=== PATIENT | male | born 1950 | race Caucasian/White ===

== ENCOUNTER → 2018-03-19 | Outpatient (CLI) | payer OTHER ==
[~2018-03-19] MED LIST: FLONASE; HYDROCODON-ACE1 EAC5 PO; NEURONTIN600 MG PO; NORCO 5-325 TA1 EACH PO; NORTRIPTYLINE H10 M1 PO; OMEPRAZOLE; OSCIMIN0.125 M1 PO; PAMELOR PO; PREDNISONE 20 M20 MG PO; PRILOSEC40 MG PO
== END ==
LOC: M.RAD 16:10
DX: M19.072 Primary osteoarthritis, left ankle and foot (principal); M77.32 Calcaneal spur, left foot

== ENCOUNTER 2018-10-24 23:31 | Emergency (ER) | payer OTHER ==
[~2018-10-24] VITALS: Ht 175.3 cm; Wt 65.8 kg
--- NOTE | ~2018-10-24 | CON ---
[address] [address] CONSULTATION Name: JEANETTE THOMAS Room: [facility] [place]#: [id number] Admission: 10/24/18 Attend Phys: Discharge: 10/25/18 Date of : 54 Report #: [id number] THIS REPORT FOR: //name// CC: Evelyn Wasserman DATE OF SERVICE: 10/25/2018 HISTORY OF PRESENT ILLNESS: The patient is a pleasant 68-year-old male with a past medical history significant for gastroesophageal reflux disease who is presenting with food bolus impaction. The patient reports that he had some rudolph peppers last night and since then has felt tightness and pain in his chest. The patient reports pain on swallowing and inability to swallow solids or liquids. He denies any difficulty breathing, nausea or vomiting. The patient reports a similar episode several years back. PAST MEDICAL HISTORY: Gastroesophageal reflux disease. PAST SURGICAL HISTORY: Nonsignificant. FAMILY HISTORY: No family history of esophageal, gastric or colon cancer. SOCIAL HISTORY: The patient smokes about half pack of cigarettes per day and denies recreational drug use. He does report intermittent alcohol use. REVIEW OF SYSTEMS: A comprehensive 10-point review of systems is negative except for what was mentioned in the HPI. PHYSICAL EXAMINATION: VITAL SIGNS: Blood pressure 129/72, pulse ox 100%, pulse rate 95, respirations 16, temperature 36.7. Chest x-ray normal. LABORATORY DATA: Indicate hemoglobin 14.5, hematocrit 42.5, platelet count 216, WBC count 99. Sodium 144, potassium 4.1, chloride 106, bicarbonate 25, BUN 12, creatinine 0.9, total bilirubin 1.4, AST 53, ALT 37, alkaline phosphatase 77. INR 1.1. ASSESSMENT AND PLAN: This is a pleasant 68-year-old male with past medical history significant for gastroesophageal reflux disease who is presenting with food bolus impaction. We will proceed with urgent [place] [address] CONSULTATION Name: JEANETTE THOMAS Room: [facility]#: [id number] Admission: 10/24/18 Attend Phys: Discharge: 10/25/18 Date of : 54 Report #: [id number] unable to keep his secretions down. Further recommendations will be based on results of the endoscopy. By: [id number] Varela MD /rigo
[2018-10-24] MEDS ORDERED: NITROGLYCERIN0.4 MG SUBLING (23:43)
[2018-10-25 00:31] LABS: ABSOLUTE BASOPHILS 0.1 thou/uL (0.0-0.2); ABSOLUTE EOSINOPHILS 0.1 thou/uL (0.0-0.7); ABSOLUTE LYMPHOCYTES 1.3 thou/uL (0.8-5.3); ABSOLUTE MONOCYTES 0.6 thou/uL (0.0-1.2); ABSOLUTE NEUTROPHILS 5.9 thou/uL (1.6-8.1); BASOPHILS 0.8 %; HEMATOCRIT 42.5 % (42.0-52.0); HEMOGLOBIN 14.5 gm/dL (14.0-18.0); LYMPHOCYTES 16.5 %; MCH 31.6 pg (26.0-34.0); MCHC 34.2 g/dL (28.0-37.0); MCV 92.5 fL (80.0-100.0); MONOCYTES 7.3 %; MPV 7.6 fl. (7.2-11.1); NUCLEATED RBCS 0 /100WBC; PLATELET COUNT* 216 thou/uL (150-400); POLYS 74.4 %; RDW-CV 13.6 % (10.5-14.5); WBC 7.9 thou/uL (4.0-11.0)
[2018-10-25 00:44] LABS: INR 1.1
[2018-10-25 00:45] LABS: ANION GAP 13 mmol/L (7-16); BUN 12 mg/dL (7-18); CALCIUM 8.8 mg/dL (8.5-10.1); CHLORIDE 106 mmol/L (98-107); CO2 25 mmol/L (21-32); CREATININE 0.9 mg/dL (0.6-1.3); GLUCOSE 107 mg/dL (70-99); POTASSIUM 4.1 mmol/L (3.5-5.1); SODIUM 144 mmol/L (136-145)
[2018-10-25 00:56] LABS: ALBUMIN 4.2 g/dL (3.4-5.0); ALKALINE PHOSPHATASE 77 U/L (46-116); LIPASE 79 U/L (73-393); NT-PRO BRAIN NAT PEPTIDE 71 pg/mL (<300); SGOT 53 U/L (15-37); SGPT 37 U/L (30-65); TOTAL BILIRUBIN 1.4 mg/dL (<0.1-1.0); TOTAL PROTEIN 7.4 g/dL (6.4-8.2); TROPONIN-I LEVEL <0.06 ng/mL (<0.06)
[2018-10-25 02:13] VITALS: BP 129/72
--- NOTE | 2018-10-25 10:15 | EKG ---
[place] [address] ELECTROCARDIOGRAM REPORT Name: JEANETTE THOMAS [id number] Admission: 10/24/18 Attend Phys: Discharge: 10/25/18 Date of : 54 Report #: [id number] THIS REPORT FOR: //name// [facility] ED Test Date: 2018-10-24 Test Time: 23:41:52 Pat Name: JEANETTE THOMAS Department: Room: Gender: M Grocery Checker: : 1950 Requested By: Elgin Wasserman Order Number: [id number] MD: Balwinder Johnson Measurements Intervals [place] Rate: 104 P: 75 CT: 205 QRS: 56 QRSD: 82 T: 63 QT: 337 QTc: 444 Interpretive Statements Sinus tachycardia Nonspecific T abnrm, anterolateral leads Baseline wander in lead(s) V2 Compared to ECG 10/23/2011 11:32:38 Sinus rhythm no longer present Atrial premature complex(es) no longer present Electronically Signed On 10-25-2018 10:15:22 SUPERVISOR EVAPORATOR by Balwinder Johnson [email or web address] <ELECTRONICALLY SIGNED> By: Balwinder Johnson MD, [facility] 10/25/18 [id number] [id number] Balwinder Johnson MD, [facility] /EPI
== END 2018-10-25 02:15 | disposition still patient (30) ==
LOC: M.SUR 23:31 → M.ERS 23:31
PROVIDERS: Emergency Medicine
DX: T18.128A Food in esophagus causing other injury, initial encounter (principal); R11.2 Nausea with vomiting, unspecified; F17.210 Nicotine dependence, cigarettes, uncomplicated; X58.XXXA Exposure to other specified factors, initial encounter; Y93.89 Activity, other specified; Y92.89 Other specified places as the place of occurrence of the external cause; Y99.8 Other external cause status

== ENCOUNTER → 2019-01-29 | Outpatient (CLI) | payer OTHER ==
[~2019-01-29] MED LIST changes: +NITROGLYCERIN0.4 MG SUBLING
[2019-01-29 11:01] LABS: ABSOLUTE EOSINOPHILS 0.1 thou/uL (0.0-0.7); ABSOLUTE LYMPHOCYTES 1.5 thou/uL (0.8-5.3); ABSOLUTE MONOCYTES 0.6 thou/uL (0.0-1.2); BASOPHILS 0.7 %; EOSINOPHILS 2.8 %; HEMATOCRIT 43.7 % (42.0-52.0); HEMOGLOBIN 14.8 gm/dL (14.0-18.0); MCH 30.6 pg (26.0-34.0); MCHC 33.8 g/dL (28.0-37.0); MCV 90.5 fL (80.0-100.0); MONOCYTES 10.6 %; MPV 7.5 fl. (7.2-11.1); NUCLEATED RBCS 0 /100WBC; PLATELET COUNT* 188 thou/uL (150-400); POLYS 56.9 %; RBC 4.83 mil/uL (4.50-6.00); RDW-CV 13.3 % (10.5-14.5); WBC 5.3 thou/uL (4.0-11.0)
[2019-01-29 11:12] LABS: PROTIME 10.3 Seconds (9.20-11.50)
[2019-01-29 11:17] LABS: CREATININE 0.8 mg/dL (0.6-1.3); POTASSIUM 3.8 mmol/L (3.5-5.1); TOTAL BILIRUBIN 1.1 mg/dL (<0.1-1.0); TOTAL PROTEIN 7.1 g/dL (6.4-8.2)
== END ==
LOC: M.ULTRA 10:00
PROVIDERS: Internal Medicine Gastroenterology
DX: K80.20 Calculus of gallbladder without cholecystitis without obstruction (principal)

== ENCOUNTER → 2019-03-22 | Day surgery (SDC) | payer OTHER ==
[~2019-03-22] MED LIST changes: +ASPIR 8181 MG PO; +CRESTOR10 MG PO; +FLONASE 0.05%50 MCG NASAL
[2019-03-22 09:36] LABS: HEMATOCRIT 43.3 % (42.0-52.0); MCH 31.5 pg (26.0-34.0); MCHC 34.6 g/dL (28.0-37.0); MCV 91.1 fL (80.0-100.0); MPV 7.5 fl. (7.2-11.1); RBC 4.76 mil/uL (4.50-6.00); RDW-CV 14.1 % (10.5-14.5); WBC 7.7 thou/uL (4.0-11.0)
[2019-03-22 09:43] LABS: CALCIUM 8.9 mg/dL (8.5-10.1); CREATININE 0.8 mg/dL (0.6-1.3)
[2019-03-22 09:48] LABS: ALBUMIN 3.9 g/dL (3.4-5.0); TOTAL BILIRUBIN 1.8 mg/dL (<0.1-1.0)
--- NOTE | 2019-03-24 15:05 | PATH ---
[facility] [address] [place] [address] PATHOLOGY RPT PROCEDURE Name: JEANETTE THOMAS Room: [facility].#: [id number] Admission: 03/22/19 Date of : 54 Discharge: Report #: [id number] Path Case #: [id number] [facility] Accession Number: [id number] . 01 Material submitted: . gallbladder - GALLBLADDER . 01 Clinical history: . Calculus of gallbladder without cholecystitis or obstruction . 01 Frozen section diagnosis: . . /QMS . 02 Diagnosis: Gallbladder: - Chronic cholecystitis and cholelithiasis. (SHANNAN:frances; 03/24/2019) QMS/03/24/2019 . 02 Electronically signed: . Henrry Negro MD, Pathologist NPI- [id number] . 01 Gross description: . The specimen is received in formalin, labeled "marie Colunga". Received is an intact gallbladder measuring 8.7 x 4.3 x 3.7 cm in greatest dimensions displaying a blue-kennedy serosal surface. Opening the specimen reveals a velvety, bile-stained mucosa with a gallbladder wall thickness of 0.1 cm. Calculi are present displaying a black and stellate appearance, and no masses or lesions are noted grossly. Grease Man sections, to include the proximal margin, are submitted in cassette A1. (CAA; 03/23/2019) QAC/QAC . 02 Microscopic: . . . 02 Pathologist provided ICD-10: K80.10 . 02 CPT . 087519 Specimen Comment: A courtesy copy of this report has been sent to Specimen Comment: [phone], . Specimen Comment: Report sent to and Performed at: [address] [place] [address] PATHOLOGY RPT PROCEDURE Name: JEANETTE THOMAS Room: [facility]#: [id number] Admission: 03/22/19 Date of : 54 Discharge: Report #: [id number] Path Case #: [id number] [address], [place] [id number] MD Lewis Nicholson MD Phone: [phone] Performed at: [address] [place], [place] [id number] MD Henrry Negro MD Phone: [phone]
--- NOTE | 2019-03-27 13:09 | OP ---
[address] [address] OPERATIVE REPORT Name: WILLIAMJEANETTENAE JACQUES Room: [facility]#: [id number] Admission: 03/22/19 Attend Phys: Sigifredo Smith DO Discharge: Date of : 54 Report #: [id number] THIS REPORT FOR: //name// CC: Sigifredo Lawler DATE OF SERVICE: 03/22/2019 REFERRING PHYSICIAN: Dr. Evelyn Jimenez. PREOPERATIVE DIAGNOSIS: Symptomatic cholelithiasis. POSTOPERATIVE DIAGNOSES: Symptomatic cholelithiasis. PROCEDURE: Da Martha robotic-assisted laparoscopic cholecystectomy with immunofluorescence imaging. SURGEON: Sigifredo Smith DO. ANESTHESIA: General endotracheal. ESTIMATED BLOOD LOSS: Less than 20 mL. COMPLICATIONS: None. DESCRIPTION OF PROCEDURE: After obtaining proper consents and discussing risks and complications with the patient, he was taken to the operating room and laid on the supine position, administered general anesthesia. He was then prepped and draped in the usual sterile fashion. Timeout was performed. We confirmed the appropriate patient and procedure. Preoperative antibiotics had been given. SCDs were in place. We then made a small infraumbilical skin incision with #11 scalpel blade. This was carried down through the skin into the subcutaneous tissue using electrocautery for hemostasis. Once the fascia was encountered, it was grasped and elevated with Parris clamps. The peritoneum was then bluntly opened using a hemostat. A 2-0 Vicryl sutures were then placed in a xcaqnb-hi-enikp fashion to secure the da Martha camera port, which was then inserted. Once the camera port was inserted and insufflation was begun. Once insufflation was complete, full visual inspection of the intra-abdominal organs was performed. This revealed no significant gross abnormalities other than a dilated appearing gallbladder and a mildly fatty appearing liver. There did appear to be some omental adhesions to the gallbladder as well. I then placed three more 8.5 mm trocars, one in the left upper quadrant, 2 in the right upper quadrant. We then docked the da Martha robot. We then inserted instruments. A hook cautery was placed in the left upper quadrant, two Cadiere graspers in the right upper quadrant. I then broke scrub and went [place] [address] OPERATIVE REPORT Name: JEANETTE THOMAS Room: [facility].#: [id number] Admission: 03/22/19 Attend Phys: Sigifredo Smith DO Discharge: Date of : 54 Report #: [id number] console, I was able to elevate the fundus of the gallbladder using the third arm and then using arms 1 and 2 I was able to take down the omental adhesions, which were adherent along the entire body of the gallbladder until I was able to visualize Gustavo's pouch. Once Yan's pouch was visualized, I used immunofluorescence imaging to identify the cystic duct and common bile duct and common hepatic duct before any dissection of the hepatoduodenal ligament was performed. Once we were able to visualize this, I was easily able to dissect the hepatoduodenal ligament down from the gallbladder, dissecting the cystic duct free. I then identified the cystic artery, which was also dissected free. I obtained a critical view of safety with the cystic duct, cystic artery, common hepatic duct and common bile duct and this was also confirmed using immunofluorescence imaging. We then placed clips across the cystic duct and cystic artery proximally and distally and both were divided using electrocautery. Once this was complete, I again checked with immunofluorescent imaging to assure there was no cystic duct leak. Finding none, I then proceeded to take the gallbladder down off of the liver bed using electrocautery and blunt dissection. Once the gallbladder was completely removed, I did check the cystic duct and cystic artery stumps again for any leak or bleeding and also the liver bed. We again used immunofluorescence to assure there was no leak from either the liver bed or the cystic duct. Finding none, I then had my facilities assistant grasp the gallbladder through the far right upper quadrant trocar. I then broke scrub and went back to the patient's bedside where we undocked the robot and removed all of the instruments. I was then able to place an Endopouch through the umbilical incision and the gallbladder was placed into the Endopouch. The insufflation was then stopped. All trocars were removed. I removed the gallbladder through the umbilical incision within the Endopouch. I then closed the umbilical fascia using the 2 previously placed 0 Vicryl sutures plus 2 additional 0 Vicryl sutures. Skin incisions were all closed using 4-0 Monocryl subcuticular stitches. Mastisol, Steri-Strips, sterile OpSite and pressure dressings were placed after the wounds were injected with 0.5% Marcaine without epinephrine. The patient was awakened in the operating room and transported to recovery room in stable condition. Sponge, needle and instrument counts were all correct x 3 at the end of the procedure. <ELECTRONICALLY SIGNED> By: Sigifredo Smith DO 03/27/19 1309 [id number] Smith DO /nt
== END | disposition home or self-care (01) ==
LOC: M.SUR 07:26
PROVIDERS: Surgery
DX: K80.10 Calculus of gallbladder with chronic cholecystitis without obstruction (principal); Z79.82 Long term (current) use of aspirin; Z79.891 Long term (current) use of opiate analgesic; Z79.899 Other long term (current) drug therapy

== ENCOUNTER → 2019-06-18 | Outpatient (CLI) | payer OTHER | LOC: M.ULTRA 08:51 | DX: R22.1 Localized swelling, mass and lump, neck (principal) ==

== ENCOUNTER → 2019-07-07 | Outpatient (CLI) | payer OTHER | LOC: M.CT 06-30 13:00 | DX: R22.1 Localized swelling, mass and lump, neck (principal); Z79.82 Long term (current) use of aspirin; Z79.899 Other long term (current) drug therapy ==

== ENCOUNTER → 2020-12-25 | Outpatient (CLI) | payer MEDICARE ==
[2020-12-25 10:07] LABS: HEMATOCRIT 39.8 % (42.0-52.0); HEMOGLOBIN 13.5 gm/dL (14.0-18.0); MCH 33.5 pg (26.0-34.0); MCHC 33.8 g/dL (28.0-37.0); MCV 99.1 fL (80.0-100.0); MPV 7.2 fl. (7.2-11.1); RBC 4.02 mil/uL (4.50-6.00); RDW-CV 14.1 % (10.5-14.5); WBC 5.4 thou/uL (4.0-11.0)
[2020-12-25 10:21] LABS: ALBUMIN 3.7 g/dL (3.4-5.0); ALKALINE PHOSPHATASE 85 U/L (46-116); ANION GAP 9 mmol/L (7-16); BUN 11 mg/dL (7-18); CALCIUM 9.2 mg/dL (8.5-10.1); CHLORIDE 107 mmol/L (98-107); CHOLESTEROL 140 mg/dL (<200); CO2 29 mmol/L (21-32); CREATININE 0.9 mg/dL (0.6-1.3); DIRECT BILIRUBIN 0.2 mg/dL (<0.1-0.3); GLUCOSE 103 mg/dL (70-99); HDL CHOLESTEROL 66 mg/dL (>40); LDL CHOLESTEROL 61 mg/dL (<100); SGOT 39 U/L (15-37); SGPT 59 U/L (30-65); SODIUM 145 mmol/L (136-145); TC:HDL 2.1 Ratio (Not establshd); TOTAL BILIRUBIN 0.5 mg/dL (<0.1-1.0); TOTAL PROTEIN 6.4 g/dL (6.4-8.2); TRIGLYCERIDE 68 mg/dL (<150); VLDL 14 mg/dL (<40)
[2020-12-25 10:22] LABS: SERUM ASSESSMENT Clear
== END ==
LOC: M.LAB 09:53
PROVIDERS: ATTEND Internal Medicine Interventional Cardiology
DX: E78.00 Pure hypercholesterolemia, unspecified (principal)

== ENCOUNTER 2021-07-29 11:12 | Emergency (ER) | payer MEDICARE ==
[~2021-07-29] VITALS: Ht 175.3 cm; Wt 72.6 kg
[2021-07-29 11:54] LABS: ABSOLUTE LYMPHOCYTES 1.2 thou/uL (0.8-5.3); ABSOLUTE MONOCYTES 0.6 thou/uL (0.0-1.2); ABSOLUTE NEUTROPHILS 6.3 thou/uL (1.6-8.1); BASOPHILS 0.6 %; EOSINOPHILS 0.5 %; HEMATOCRIT 41.4 % (42.0-52.0); HEMOGLOBIN 14.4 gm/dL (14.0-18.0); LYMPHOCYTES 14.2 %; MCH 30.8 pg (26.0-34.0); MCHC 34.7 g/dL (28.0-37.0); MCV 88.9 fL (80.0-100.0); MPV 7.3 fl. (7.2-11.1); NUCLEATED RBCS 0 /100WBC; PLATELET COUNT* 190 thou/uL (150-400); POLYS 77.7 %; RBC 4.66 mil/uL (4.50-6.00); RDW-CV 13.9 % (10.5-14.5); WBC 8.2 thou/uL (4.0-11.0)
[2021-07-29 12:10] LABS: CALCIUM 8.4 mg/dL (8.5-10.1); CREATININE 0.9 mg/dL (0.6-1.3); POTASSIUM 4.6 mmol/L (3.5-5.1)
[2021-07-29 12:13] LABS: ALBUMIN 4.1 g/dL (3.4-5.0); TOTAL BILIRUBIN 1.5 mg/dL (<0.1-1.0); TOTAL PROTEIN 6.8 g/dL (6.4-8.2)
[2021-07-29 12:51] LABS: URINE BLOOD NEGATIVE (Negative); URINE CLARITY CLEAR; URINE COLOR YELLOW; URINE GLUCOSE-RANDOM NEGATIVE (Negative); URINE KETONES NEGATIVE (Negative); URINE LEUKOCYTES-REFLEX NEGATIVE (Negative); URINE NITRITE-REFLEX NEGATIVE (Negative); URINE PROTEIN NEGATIVE (Negative); URINE SPECIFIC GRAVITY >= 1.030 (1.005-1.030); URINE UROBILINOGEN 0.2 E.U./dl (0.2-1.0)
[2021-07-29 12:58] LABS: URINE BILIRUBIN 1+ (Negative)
[2021-07-29 13:02] LABS: ICTOTEST (BILI CONFIRMATORY) Negative (Negative)
[2021-07-29] MEDS ORDERED: HYDROCODON-ACE1 EAC7 PO ×2 (13:32→15:13)
[2021-07-29] MEDS ORDERED: FLEXERIL PO ×2 (13:47→15:13)
[2021-07-29] MEDS ORDERED: IBUPROFEN 800800 M1 PO ×2 (13:47→15:13)
[2021-07-29] MEDS ORDERED: MEDROLDOSEPACK PO ×2 (13:47→15:13)
[2021-07-29 14:04] VITALS: BP 112/65
== END 2021-07-29 14:05 | disposition home or self-care (01) ==
LOC: M.ERS 11:12
PROVIDERS: Nurse Practitioner Family
DX: M54.50 Low back pain, unspecified (principal); M54.6 Pain in thoracic spine; R10.9 Unspecified abdominal pain; Z79.899 Other long term (current) drug therapy; Z79.82 Long term (current) use of aspirin